=== PATIENT | male | born 1980 | race Two or more races ===

== ENCOUNTER 2019-12-24 18:11 | Emergency (ER) | payer OTHER ==
[~2019-12-24] VITALS: Ht 165.1 cm; Wt 90.7 kg
[2019-12-24 18:18] VITALS: BP 152/106
[2019-12-24] MEDS ORDERED: IBUPROFEN 800 MG TAB PO ONE (20:15)
== END 2019-12-24 20:33 | disposition home or self-care (01) ==
LOC: ER 18:11
DX: S33.5XXA Sprain of ligaments of lumbar spine, initial encounter (principal); M54.16 Radiculopathy, lumbar region; M62.838 Other muscle spasm; X50.9XXA Other and unspecified overexertion or strenuous movements or postures, initial encounter; Y93.89 Activity, other specified; Y92.69 Other specified industrial and construction area as the place of occurrence of the external cause; Y99.8 Other external cause status
CPT/HCPCS: 72100